=== PATIENT | male | born 1970 | race Two or more races ===

== ENCOUNTER 2017-10-01 08:31 | Emergency (ER) | payer OTHER ==
[~2017-10-01] VITALS: Ht 165.1 cm; Wt 97.7 kg
[~2017-10-01 08:31] MED LIST: METF10002 PO
[2017-10-01 09:04] LABS: MICROSCOPIC NOT IND
[2017-10-01 09:20] LABS: BASOPHILS # (AUTO) 0.04 x10^3/uL (0-0.1); BASOPHILS % (AUTO) 1 % (0-1); EOSINOPHILS # (AUTO) 0.15 x10^3/uL (0-0.4); EOSINOPHILS % (AUTO) 3 % (1-7); LYMPHOCYTES # (AUTO) 1.71 x10^3/uL (1-3.4); LYMPHOCYTES % (AUTO) 33 % (22-44); MD NO; MEAN CORPUSCULAR HGB CONC 34.4 g/dL (33.2-36.2); MEAN CORPUSCULAR VOLUME 90.1 fL (81-97); MEAN PLATELET VOLUME 7.7 fL (7.4-10.4); MONOCYTES # (AUTO) 0.52 x10^3/uL (0.2-0.8); MONOCYTES % (AUTO) 10 % (2-9); NEUTROPHILS % (AUTO) 54 % (42-75); PLATELET COUNT 305 x10^3/uL (130-400); RED BLOOD COUNT 5.55 x10^6/uL (4.38-5.82); RED CELL DISTRIBUTION WIDTH 12.4 % (9.4-14.8)
[2017-10-01 09:31] LABS: ALANINE AMINOTRANSFERASE 80 U/L (12-78); ALBUMIN 3.1 g/dL (3.4-5.0); ANION GAP 10 mmol/L (5-15); CALCIUM 8.9 mg/dL (8.5-10.1); CHLORIDE 99 mmol/L (98-107); CREATININE 1.17 mg/dL (0.7-1.3)
[2017-10-01 09:33] LABS: ALKALINE PHOSPHATASE 157 U/L (45-117); BILIRUBIN,TOTAL 0.4 mg/dL (0.2-1.0); TOTAL PROTEIN 7.3 g/dL (6.4-8.2)
[2017-10-01] MEDS ORDERED: SODIUM CHLORIDE FLUSH 10ML SYR IVF ONE (10:00)
[2017-10-01] MEDS ORDERED: SODIUM CHLORIDE 0.9% 1,000ML IVBOLUS ONE (10:00)
[2017-10-01] MEDS ORDERED: OMNIPAQUE 350 MG/ML, 100ML BOTTLE ONE (10:13)
[2017-10-01] MEDS ORDERED: INSULIN REGULAR 100 UNITS/ML, 3ML VIAL ONE (11:30)
[2017-10-01] MEDS ORDERED: INSULIN REGULAR 100 UNITS/ML, 3ML VIAL SQ-INSULIN ONE (11:30)
[2017-10-01 12:09] VITALS: BP 126/78
== END 2017-10-01 12:23 | disposition home or self-care (01) ==
LOC: ED 10:59
DX: K59.00 Constipation, unspecified (principal); E11.65 Type 2 diabetes mellitus with hyperglycemia
CPT/HCPCS: 36415; 74177; 80053; 81003; 83690; 85025; 96360; 96361; 96372; 99285; J7030; Q9967

== ENCOUNTER 2017-10-02 16:24 | Emergency (ER) | payer OTHER ==
[~2017-10-02] VITALS: Ht 165.1 cm; Wt 86.8 kg
[2017-10-02 17:41] LABS: BASOPHILS # (AUTO) 0.03 x10^3/uL (0-0.1); BASOPHILS % (AUTO) 1 % (0-1); EOSINOPHILS # (AUTO) 0.12 x10^3/uL (0-0.4); EOSINOPHILS % (AUTO) 2 % (1-7); LYMPHOCYTES # (AUTO) 2.06 x10^3/uL (1-3.4); LYMPHOCYTES % (AUTO) 35 % (22-44); MD NO; MEAN CORPUSCULAR HEMOGLOBIN 31.8 pg (27.5-34.5); MEAN CORPUSCULAR HGB CONC 34.9 g/dL (33.2-36.2); MEAN CORPUSCULAR VOLUME 91.1 fL (81-97); MEAN PLATELET VOLUME 7.8 fL (7.4-10.4); MONOCYTES # (AUTO) 0.55 x10^3/uL (0.2-0.8); MONOCYTES % (AUTO) 10 % (2-9); NEUTROPHILS # (AUTO) 3.05 x10^3/uL (1.8-6.8); NEUTROPHILS % (AUTO) 53 % (42-75); PLATELET COUNT 325 x10^3/uL (130-400); RED BLOOD COUNT 5.69 x10^6/uL (4.38-5.82); RED CELL DISTRIBUTION WIDTH 12.8 % (9.4-14.8)
[2017-10-02 17:51] LABS: ALBUMIN 3.3 g/dL (3.4-5.0); ANION GAP 7 mmol/L (5-15); CALCIUM 8.6 mg/dL (8.5-10.1); CHLORIDE 103 mmol/L (98-107)
[2017-10-02 17:55] LABS: ALANINE AMINOTRANSFERASE 86 U/L (12-78); ALKALINE PHOSPHATASE 115 U/L (45-117); BILIRUBIN,TOTAL 0.7 mg/dL (0.2-1.0); CREATININE 0.94 mg/dL (0.7-1.3); TOTAL PROTEIN 7.6 g/dL (6.4-8.2)
[2017-10-02] MEDS ORDERED: ONDANSETRON ODT 4 MG PO ONE (18:30)
[2017-10-02] MEDS ORDERED: ONDANSETRON ODT 4 MG ONE (18:38)
[2017-10-02 18:56] LABS: TROPONIN I < 0.015 ng/mL (0.000-0.045)
[2017-10-02] MEDS ORDERED: PROMETHAZINE 25 MG/ML, 1ML ONE (18:57)
[2017-10-02] MEDS ORDERED: PROMETHAZINE 25 MG/ML, 1ML IM ONE (19:00)
[2017-10-02 20:33] VITALS: BP 125/87
== END 2017-10-02 20:43 | disposition home or self-care (01) ==
LOC: ED 19:09
DX: K29.00 Acute gastritis without bleeding (principal); R11.2 Nausea with vomiting, unspecified; E11.9 Type 2 diabetes mellitus without complications; K21.9 Gastro-esophageal reflux disease without esophagitis
CPT/HCPCS: 36415; 71045; 80053; 83690; 84484; 85025; 86677; 93005; 96372; 99285; J2550; Q0162

== ENCOUNTER → 2017-11-21 | Outpatient (CLI) | payer OTHER ==
[~2017-11-21] MED LIST changes: +SINCALIDE (KINEVAC) 5 MCG ONE
== END | disposition home or self-care (01) ==
LOC: RAD 10:22
PROVIDERS: ATTEND Family Medicine
DX: R10.9 Unspecified abdominal pain (principal)
CPT/HCPCS: 78226; A9537; J2805

== ENCOUNTER → 2017-12-24 | Outpatient (CLI) | payer OTHER ==
[~2017-12-24] MED LIST changes: +ATOR10TA9 PO; +HYDR-3240 PO; +ONDA4TAB10 PO; -SINCALIDE (KINEVAC) 5 MCG ONE; +SITA100T PO
[2017-12-24 10:01] LABS: ALBUMIN 3.7 g/dL (3.4-5.0); ANION GAP 7 mmol/L (5-15); CALCIUM 8.6 mg/dL (8.5-10.1); CHLORIDE 109 mmol/L (98-107)
[2017-12-24 10:06] LABS: ALANINE AMINOTRANSFERASE 57 U/L (12-78); ALKALINE PHOSPHATASE 90 U/L (45-117); BILIRUBIN,TOTAL 0.8 mg/dL (0.2-1.0); CREATININE 0.97 mg/dL (0.7-1.3); TOTAL PROTEIN 7.8 g/dL (6.4-8.2)
== END | disposition home or self-care (01) ==
LOC: STAR 08:59
PROVIDERS: ATTEND Surgery
DX: Z01.818 Encounter for other preprocedural examination (principal)
CPT/HCPCS: 36415; 80053

== ENCOUNTER 2017-12-30 08:38 | Day surgery (SDC) | payer OTHER ==
[~2017-12-30] VITALS: Ht 165.1 cm; Wt 87.4 kg
[~2017-12-30 08:38] MED LIST changes: +BUPIVACAINE/PF-EPI 0.5% 1:200K ONE; -HYDR-3240 PO; -ONDA4TAB10 PO
[2017-12-30 09:01] VITALS: BP 135/92
[2017-12-30] MEDS ORDERED: LACTATED RINGERS 1,000 ML IV SCH (09:03)
[2017-12-30] MEDS ORDERED: ACETAMINOPHEN 500 MG TABLET PO ONE (09:30)
[2017-12-30] MEDS ORDERED: ONDANSETRON ODT 8 MG PO ONE (09:30)
[2017-12-30] MEDS ORDERED: GABAPENTIN 300 MG CAPSULE PO ONE (09:30)
[2017-12-30] MEDS: OXYcodone IR 5MG TABLET PO ONE ×2 (09:39→09:44)
[2017-12-30] MEDS ORDERED: MIDAZOLAM 1 MG/ML, 2ML ONE ×2 (09:41→11:39)
[2017-12-30] MEDS ORDERED: FENTANYL PF 250 MCG/5ML ONE (09:41)
[2017-12-30] MEDS ORDERED: SUCCINYLCHOLINE 20 MG/ML, 10ML ONE (10:01)
[2017-12-30] MEDS ORDERED: PROPOFOL 10 MG/ML, 20ML ONE (10:01)
[2017-12-30] MEDS ORDERED: ROCURONIUM 10MG/ML,5ML ONE (10:01)
[2017-12-30] MEDS ORDERED: CEFAZOLIN 1,000 MG ONE (10:14)
[2017-12-30] MEDS ORDERED: ONDANSETRON 2MG/ML, 2ML ONE (10:14)
[2017-12-30] MEDS ORDERED: KETOROLAC 30 MG/1 ML ONE (10:14)
[2017-12-30] MEDS ORDERED: PROMETHAZINE 25 MG/ML, 1ML IV PRN (10:30)
[2017-12-30] MEDS ORDERED: PROMETHAZINE 12.5 MG SUPP PR PRN (10:30)
[2017-12-30] MEDS ORDERED: MIDAZOLAM 1 MG/ML, 2ML IV PRN (10:30)
[2017-12-30] MEDS ORDERED: MEPERIDINE/PF 25MG/0.5ML IVPush PRN (10:30)
[2017-12-30] MEDS ORDERED: OXYcodone 5 MG/5 ML ORAL.SOL UDC PO PRN (10:30)
[2017-12-30] MEDS ORDERED: PROMETHAZINE 25 MG SUPP PR PRN (10:30)
[2017-12-30] MEDS ORDERED: EPHEDRINE 50 MG/ML, 1ML IM PRN (10:30)
[2017-12-30] MEDS ORDERED: MORPHINE SULFATE 4 MG/ML, 1ML IVPush PRN (10:30)
[2017-12-30] MEDS ORDERED: DIPHENHYDRAMINE 50 MG/ML, 1ML IVPush PRN (10:30)
[2017-12-30] MEDS ORDERED: ONDANSETRON ODT 8 MG PO PRN (10:30)
[2017-12-30] MEDS ORDERED: LABETALOL 5MG/ML, 20ML IV PRN (10:30)
[2017-12-30] MEDS ORDERED: ONDANSETRON 2MG/ML, 2ML IV PRN (10:30)
[2017-12-30] MEDS ORDERED: EPHEDRINE 50 MG/ML, 1ML IVPush PRN (10:30)
[2017-12-30] MEDS ORDERED: hydrALAzine 20 MG/ML, 1ML ONE (11:19)
[2017-12-30] MEDS ORDERED: FENTANYL PF 100 MCG/2ML ONE (11:27)
[2017-12-30] MEDS: FENTANYL PF 100 MCG/2ML IV PRN ×3 (11:27→11:48)
[2017-12-30] MEDS ORDERED: hydrALAzine 20 MG/ML, 1ML IV PRN (11:30)
[2017-12-30] MEDS ORDERED: OXYcodone 5 MG/5 ML ORAL.SOL UDC ONE (11:50)
[2017-12-31] MEDS ORDERED: ONDA4TAB10 PO (19:22)
[2017-12-31] MEDS ORDERED: HYDR-3240 PO (19:22)
== END 2017-12-30 13:55 | disposition home or self-care (01) ==
LOC: OUT 08:38
PROVIDERS: ATTEND Surgery
DX: K80.10 Calculus of gallbladder with chronic cholecystitis without obstruction (principal); E11.9 Type 2 diabetes mellitus without complications; E78.00 Pure hypercholesterolemia, unspecified; Z72.89 Other problems related to lifestyle
CPT/HCPCS: 47562; 82962; 88304; C1729; J0330; J0360; J0690; J1885; J2250; J2405; J2704; J3010; J7120; Q0162

== ENCOUNTER 2017-12-31 18:52 | Inpatient (IN) | payer OTHER ==
[~2017-12-31] VITALS: Ht 165.1 cm; Wt 90.0 kg
[~2017-12-31 18:52] MED LIST changes: -BUPIVACAINE/PF-EPI 0.5% 1:200K ONE
[2017-12-31] MEDS ORDERED: MORPHINE SULFATE 4 MG/ML, 1ML IVPush PRN (19:00)
[2017-12-31] MEDS ORDERED: ONDANSETRON ODT 4 MG PO ONE (19:00)
[2017-12-31] MEDS ORDERED: ONDANSETRON ODT 4 MG ONE (19:04)
[2017-12-31] MEDS ORDERED: MORPHINE SULFATE 4 MG/ML, 1ML ONE (19:05)
[2017-12-31] MEDS ORDERED: ONDA4TAB10 PO (19:22)
[2017-12-31] MEDS ORDERED: HYDR-3240 PO (19:22)
[2017-12-31 19:27] LABS: BASOPHILS # (AUTO) 0.02 x10^3/uL (0-0.1); BASOPHILS % (AUTO) 0 % (0-1); EOSINOPHILS # (AUTO) 0.12 x10^3/uL (0-0.4); EOSINOPHILS % (AUTO) 1 % (1-7); LYMPHOCYTES # (AUTO) 0.62 x10^3/uL (1-3.4); LYMPHOCYTES % (AUTO) 5 % (22-44); MD NO; MEAN CORPUSCULAR HEMOGLOBIN 31.9 pg (27.5-34.5); MEAN CORPUSCULAR HGB CONC 34.4 g/dL (33.2-36.2); MEAN CORPUSCULAR VOLUME 92.8 fL (81-97); MEAN PLATELET VOLUME 7.4 fL (7.4-10.4); MONOCYTES # (AUTO) 0.53 x10^3/uL (0.2-0.8); MONOCYTES % (AUTO) 4 % (2-9); NEUTROPHILS # (AUTO) 10.81 x10^3/uL (1.8-6.8); NEUTROPHILS % (AUTO) 89 % (42-75); PLATELET COUNT 257 x10^3/uL (130-400); RED BLOOD COUNT 4.93 x10^6/uL (4.38-5.82)
[2017-12-31 19:41] LABS: ALANINE AMINOTRANSFERASE 77 U/L (12-78); ALBUMIN 2.8 g/dL (3.4-5.0); ANION GAP 9 mmol/L (5-15); CALCIUM 8.9 mg/dL (8.5-10.1); CHLORIDE 100 mmol/L (98-107)
[2017-12-31 19:46] LABS: ALKALINE PHOSPHATASE 73 U/L (45-117); CREATININE 1.14 mg/dL (0.7-1.3); TOTAL PROTEIN 7.2 g/dL (6.4-8.2); TROPONIN I 0.077 ng/mL (0.000-0.045)
[2017-12-31] MEDS ORDERED: OMNIPAQUE 350 MG/ML, 100ML BOTTLE ONE (20:17)
[2017-12-31] MEDS ORDERED: ZOLPIDEM 5MG TABLET PO PRN (22:00)
[2017-12-31] MEDS ORDERED: IBUPROFEN 600 MG TABLET PO PRN (22:00)
[2017-12-31] MEDS ORDERED: ONDANSETRON 2MG/ML, 2ML IVPush PRN (22:00)
[2017-12-31] MEDS ORDERED: ONDANSETRON ODT 4 MG PO PRN (22:00)
[2017-12-31] MEDS ORDERED: ACETAMINOPHEN 325 MG TABLET PO PRN (22:00)
[2017-12-31] MEDS ORDERED: POLYETHYLENE GLYCOL 17 GM PACKET PO PRN (22:00)
[2017-12-31] MEDS: ENOXAPARIN 40 MG/0.4 ML SQ SCH (22:34)
[2017-12-31] MEDS: morphine SULFATE 10 MG/ML, 1ML IVPush PRN (22:34)
[2017-12-31] MEDS: SODIUM CHLORIDE 0.9% 1,000 ML IV SCH (22:35)
[2017-12-31 22:42] VITALS: BP 110/88
[2018-01-01 00:03] VITALS: BP 108/70
[2018-01-01 01:06] LABS: BASOPHILS # (AUTO) 0.01 x10^3/uL (0-0.1); BASOPHILS % (AUTO) 0 % (0-1); EOSINOPHILS % (AUTO) 2 % (1-7); LYMPHOCYTES # (AUTO) 0.79 x10^3/uL (1-3.4); LYMPHOCYTES % (AUTO) 8 % (22-44); MD NO; MEAN CORPUSCULAR HEMOGLOBIN 31.7 pg (27.5-34.5); MEAN CORPUSCULAR HGB CONC 34.3 g/dL (33.2-36.2); MEAN CORPUSCULAR VOLUME 92.4 fL (81-97); MEAN PLATELET VOLUME 7.4 fL (7.4-10.4); MONOCYTES # (AUTO) 0.56 x10^3/uL (0.2-0.8); MONOCYTES % (AUTO) 5 % (2-9); NEUTROPHILS # (AUTO) 8.74 x10^3/uL (1.8-6.8); NEUTROPHILS % (AUTO) 85 % (42-75); PLATELET COUNT 242 x10^3/uL (130-400); RED BLOOD COUNT 4.46 x10^6/uL (4.38-5.82); RED CELL DISTRIBUTION WIDTH 12.7 % (9.4-14.8)
[2018-01-01 01:19] LABS: ANION GAP 9 mmol/L (5-15); CALCIUM 8.6 mg/dL (8.5-10.1); CHLORIDE 100 mmol/L (98-107); CHOLESTEROL, TOTAL 98 mg/dL (140-239); CREATININE 0.98 mg/dL (0.7-1.3)
[2018-01-01 01:24] LABS: CHOL/HDL RATIO 3.1; HDL CHOL % 33 % (26-37); HDL CHOLESTEROL (DIRECT) 32 mg/dL (40-60); LDL CHOLESTEROL,CALCULATED 36 mg/dL (54-169); LDL/HDL RATIO 1.1 (0.5-3.0); TRIGLYCERIDES 152 mg/dL (50-200); VLDL CHOLESTEROL 30 mg/dL (0-25)
[2018-01-01 01:26] LABS: TROPONIN I 0.093 ng/mL (0.000-0.045)
[2018-01-01] MEDS: morphine SULFATE 10 MG/ML, 1ML IVPush PRN ×2 (06:18→14:59)
[2018-01-01 07:05] LABS: TROPONIN I 0.093 ng/mL (0.000-0.045)
[2018-01-01 07:37] VITALS: BP 143/79
[2018-01-01] MEDS ORDERED: REGADENOSON 0.4 MG/5 ML SYRINGE ONE (07:47)
[2018-01-01] MEDS: SODIUM CHLORIDE 0.9% 1,000 ML IV SCH (08:24)
[2018-01-01] MEDS ORDERED: LINAGLIPTIN 5 MG TAB PO SCH (09:00)
[2018-01-01 10:32] LABS: HEMOGLOBIN A1C 8.8 % (4.2-6.3)
[2018-01-01] MEDS: LINAGLIPTIN 5 MG TAB PO SCH ×2 (11:41→11:54)
[2018-01-01] MEDS: INSULIN LISPRO 100 UNITS/ML, PEN SQ-INSULIN SCH ×3 (13:08→20:43)
[2018-01-01 13:12] VITALS: BP 115/78
[2018-01-01] MEDS ORDERED: MAGNESIUM SULFATE PMX 2GM/50ML 50 ML IV ONE (14:30)
[2018-01-01] MEDS ORDERED: LORazepam 2 MG/ML, 1ML IVPush PRN (16:00)
[2018-01-01] MEDS ORDERED: ALUMINUM/MAG/SIMETHICONE 30 ML UDC PO PRN (16:00)
[2018-01-01] MEDS: PANTOPRAZOLE 40 MG IV IVPush SCH (16:52)
[2018-01-01 17:11] LABS: AMPHETAMINE SCREEN, URINE Negative (Negative); BARBITURATE SCREEN, URINE Negative (Negative); BENZODIAZEPINE SCREEN, URINE Negative (Negative); CANNABINOID SCREEN, URINE Negative (Negative); COCAINE SCREEN, URINE Negative (Negative); METHADONE SCREEN, URINE Negative (Negative); OPIATE SCREEN, URINE Positive (Negative)
[2018-01-01 17:13] LABS: TROPONIN I 0.065 ng/mL (0.000-0.045)
[2018-01-01 19:15] VITALS: BP 122/82
[2018-01-01] MEDS ORDERED: IBUPROFEN 200 MG TABLET ONE (20:13)
[2018-01-01] MEDS ORDERED: ATORVASTATIN 10 MG TABLET PO SCH (21:00)
[2018-01-01] MEDS: ENOXAPARIN 40 MG/0.4 ML SQ SCH (22:23)
[2018-01-02 01:47] VITALS: BP 128/86
[2018-01-02] MEDS: PANTOPRAZOLE 40 MG IV IVPush SCH (04:45)
[2018-01-02 05:31] LABS: BASOPHILS # (AUTO) 0.01 x10^3/uL (0-0.1); BASOPHILS % (AUTO) 0 % (0-1); EOSINOPHILS # (AUTO) 0.28 x10^3/uL (0-0.4); EOSINOPHILS % (AUTO) 3 % (1-7); LYMPHOCYTES # (AUTO) 0.98 x10^3/uL (1-3.4); LYMPHOCYTES % (AUTO) 10 % (22-44); MD NO; MEAN CORPUSCULAR HEMOGLOBIN 31.8 pg (27.5-34.5); MEAN CORPUSCULAR HGB CONC 34.5 g/dL (33.2-36.2); MEAN CORPUSCULAR VOLUME 92.4 fL (81-97); MEAN PLATELET VOLUME 7.5 fL (7.4-10.4); MONOCYTES % (AUTO) 10 % (2-9); NEUTROPHILS # (AUTO) 7.29 x10^3/uL (1.8-6.8); NEUTROPHILS % (AUTO) 77 % (42-75); PLATELET COUNT 245 x10^3/uL (130-400); RED BLOOD COUNT 4.42 x10^6/uL (4.38-5.82); RED CELL DISTRIBUTION WIDTH 13.1 % (9.4-14.8)
[2018-01-02 05:39] LABS: ANION GAP 8 mmol/L (5-15); CALCIUM 8.8 mg/dL (8.5-10.1); CHLORIDE 106 mmol/L (98-107); CREATININE 0.77 mg/dL (0.7-1.3)
[2018-01-02] MEDS: INSULIN LISPRO 100 UNITS/ML, PEN SQ-INSULIN SCH ×2 (07:00→11:57)
[2018-01-02 09:25] VITALS: BP 113/74
[2018-01-02] MEDS ORDERED: PANTOPRAZOLE 20MG TABLET PO SCH (09:30)
[2018-01-02] MEDS ORDERED: METOPROLOL SUCCINATE 25 MG TAB.ER.24H PO SCH (12:00)
[2018-01-02] MEDS ORDERED: PANT20TA3 PO (13:45)
[2018-01-02] MEDS ORDERED: LOSA25TA2 PO (13:45)
[2018-01-02] MEDS ORDERED: ASPI-621 PO (13:45)
[2018-01-02] MEDS ORDERED: METO25TA91 PO (13:45)
[2018-01-02] MEDS ORDERED: MAG30ORA PO (13:45)
[2018-01-03] MEDS ORDERED: ASPIRIN 81 MG TABLET EC PO SCH (06:00)
[2018-01-03] MEDS ORDERED: LOSARTAN 25MG TABLET PO SCH (09:00)
== END 2018-01-02 15:30 | disposition home or self-care (01) | DRG 189 ==
LOC: ED 19:59 → EDIP 21:29 → 5SO 22:13 → DCLOUNGE 01-02 15:13
PROVIDERS: ADMIT Hospitalist; ATTEND Hospitalist
DX: J96.00 Acute respiratory failure, unspecified whether with hypoxia or hypercapnia (principal); J98.11 Atelectasis; E11.9 Type 2 diabetes mellitus without complications; E66.9 Obesity, unspecified; E78.5 Hyperlipidemia, unspecified; I25.10 Atherosclerotic heart disease of native coronary artery without angina pectoris; I25.5 Ischemic cardiomyopathy; K21.9 Gastro-esophageal reflux disease without esophagitis; K76.0 Fatty (change of) liver, not elsewhere classified; Z87.11 Personal history of peptic ulcer disease; I25.2 Old myocardial infarction; Z90.49 Acquired absence of other specified parts of digestive tract; Z68.33 Body mass index [BMI] 33.0-33.9, adult
CPT/HCPCS: 36415; 71275; 76700; 78452; 80048; 80053; 80061; 80307; 82962; 83036; 83605; 83690; 83735; 83880; 84100; 84484; 85025; 93005; 93017; 93306; 96374; 99285; G0378; J1650; J2785; Q0162; Q9967; A9502; C9113; C9898; J1815; J2060; J2270; J3475; J7030

== ENCOUNTER 2018-04-21 06:02 | Observation (INO) | payer OTHER ==
[~2018-04-21] VITALS: Ht 165.1 cm; Wt 93.4 kg
[2018-04-21] VITALS (7 sets, daily range): BP systolic 99–121; BP diastolic 59–81
[~2018-04-21 06:02] MED LIST changes: +ASPI81TA45 PO; +HYDR-3240 PO; +LOSA25TA2 PO; +MAG30ORA PO; +METO25TA91 PO; +ONDA4TAB10 PO; +PANT20TA3 PO
[2018-04-21] MEDS ORDERED: ASPIRIN 81 MG TABLET CHEW PO ONE (06:30)
[2018-04-21] MEDS ORDERED: LORazepam 2 MG/ML, 1ML IVPush ONE (06:30)
[2018-04-21] MEDS ORDERED: SODIUM CHLORIDE FLUSH 10ML SYR IVF ONE (06:30)
[2018-04-21] MEDS ORDERED: NITROGLYCERIN SINGLE TAB 0.4 MG SL PRN (06:30)
[2018-04-21] MEDS ORDERED: ASPIRIN 81 MG TABLET CHEW ONE (06:31)
[2018-04-21] MEDS ORDERED: LORazepam 2 MG/ML, 1ML ONE (06:31)
[2018-04-21] MEDS ORDERED: NITROGLYCERIN SINGLE TAB 0.4 MG SL ONE (06:31)
[2018-04-21 06:44] LABS: BASOPHILS # (AUTO) 0.06 x10^3/uL (0-0.1); BASOPHILS % (AUTO) 1 % (0-1); EOSINOPHILS % (AUTO) 3 % (1-7); LYMPHOCYTES # (AUTO) 2.24 x10^3/uL (1-3.4); LYMPHOCYTES % (AUTO) 32 % (22-44); MD NO; MEAN CORPUSCULAR HEMOGLOBIN 31.6 pg (27.5-34.5); MEAN CORPUSCULAR HGB CONC 34.2 g/dL (33.2-36.2); MEAN CORPUSCULAR VOLUME 92.5 fL (81-97); MEAN PLATELET VOLUME 7.3 fL (7.4-10.4); MONOCYTES # (AUTO) 0.72 x10^3/uL (0.2-0.8); MONOCYTES % (AUTO) 10 % (2-9); NEUTROPHILS # (AUTO) 3.75 x10^3/uL (1.8-6.8); NEUTROPHILS % (AUTO) 54 % (42-75); PLATELET COUNT 336 x10^3/uL (130-400); RED BLOOD COUNT 5.33 x10^6/uL (4.38-5.82); RED CELL DISTRIBUTION WIDTH 13.1 % (9.4-14.8)
--- NOTE | 2018-04-21 06:45 | NUR ---
FIRST CONTACT WITH PT. PT C/O LEFT SIDED CP RADIATING TO LEFT ARM WITH NAUSEA SINCE 5AM TODAY. PT HAS HX OF [place]. PT'S AOX4. RESPS EVEN AND UNLABORED. 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 ALL MONITORS IN PLACE. CALL LIGHT WITHIN REACH. EDMD AT BEDSIDE AND EXPLAIN POC AT THIS TIME.
--- NOTE | 2018-04-21 06:50 | NUR ---
PT MEDICATED PER EMAR. PT TOLERATED WELL. PT'S AOX4. RESPS EVEN AND UNLABORED.
[2018-04-21 06:57] LABS: ALBUMIN 3.3 g/dL (3.4-5.0); ANION GAP 6 mmol/L (5-15); CALCIUM 8.6 mg/dL (8.5-10.1); CHLORIDE 106 mmol/L (98-107); CREATININE 0.94 mg/dL (0.7-1.3)
--- NOTE | 2018-04-21 06:58 | NUR ---
REPORT GIVEN TO FERNIE MARTINES.
[2018-04-21 07:00] LABS: TROPONIN I < 0.015 ng/mL (0.000-0.045)
--- NOTE | 2018-04-21 08:33 | NUR ---
SBAR TO NICOLAS MARTINES VIA TELEPHONE
--- NOTE | 2018-04-21 08:33 | NUR ---
LAST EAT OR DRINK 04/20/18 AT 1900
[2018-04-21] MEDS ORDERED: ONDANSETRON ODT 4 MG PO PRN (11:00)
[2018-04-21] MEDS: metFORMIN 500 MG TABLET PO SCH ×2 (11:01→15:52)
[2018-04-21] MEDS ORDERED: PANTOPRAZOLE 20MG TABLET PO SCH (11:02)
[2018-04-21] MEDS ORDERED: LINAGLIPTIN 5 MG TAB PO SCH (11:06)
[2018-04-21] MEDS ORDERED: ACETAMINOPHEN 325 MG TABLET PO PRN (11:30)
[2018-04-21] MEDS ORDERED: morphine SULFATE 10 MG/ML, 1ML IVPush PRN (11:30)
[2018-04-21] MEDS ORDERED: ONDANSETRON 2MG/ML, 2ML IVPush PRN (11:30)
[2018-04-21] MEDS ORDERED: LOSARTAN 25MG TABLET PO SCH (11:30)
[2018-04-21] MEDS ORDERED: ENOXAPARIN 40 MG/0.4 ML SQ SCH (11:30)
[2018-04-21 12:06] LABS: TROPONIN I < 0.015 ng/mL (0.000-0.045)
[2018-04-21 12:21] LABS: AMPHETAMINE SCREEN, URINE Positive (Negative); BARBITURATE SCREEN, URINE Negative (Negative); BENZODIAZEPINE SCREEN, URINE Negative (Negative); CANNABINOID SCREEN, URINE Positive (Negative); COCAINE SCREEN, URINE Negative (Negative); METHADONE SCREEN, URINE Negative (Negative); OPIATE SCREEN, URINE Negative (Negative)
[2018-04-21] MEDS ORDERED: SODIUM CHLORIDE 0.9% 500 ML IV SCH (16:00)
[2018-04-21] MEDS ORDERED: NITROGLYCERIN 0.4 MG BOTTLE (25 TABS) SL PRN (16:30)
[2018-04-21] MEDS ORDERED: NITROGLYCERIN 0.4 MG/SPRAY SL PRN (16:30)
[2018-04-21] MEDS: NITROGLYCERIN 0.4 MG BOTTLE (25 TABS) SL PRN ×2 (16:41→16:51)
[2018-04-21 17:33] LABS: TROPONIN I < 0.015 ng/mL (0.000-0.045)
[2018-04-21] MEDS ORDERED: ATORVASTATIN 10 MG TABLET PO SCH (21:00)
[2018-04-22] MEDS ORDERED: ASPIRIN 81 MG TABLET EC PO SCH (06:00)
[2018-04-22] MEDS ORDERED: METOPROLOL SUCCINATE 25 MG TAB.ER.24H PO SCH (06:00)
== END 2018-04-21 18:39 | disposition home or self-care (01) ==
LOC: ED 06:26 → INTOOBSV 07:39 → EDIP 07:39 → 5SO 08:48
PROVIDERS: ADMIT Internal Medicine; ATTEND Internal Medicine
DX: R07.89 Other chest pain (principal); E11.65 Type 2 diabetes mellitus with hyperglycemia; I25.10 Atherosclerotic heart disease of native coronary artery without angina pectoris; E66.9 Obesity, unspecified; E78.5 Hyperlipidemia, unspecified; F41.1 Generalized anxiety disorder; I11.0 Hypertensive heart disease with heart failure; I50.32 Chronic diastolic (congestive) heart failure; K21.9 Gastro-esophageal reflux disease without esophagitis; Z79.82 Long term (current) use of aspirin; Z87.11 Personal history of peptic ulcer disease; I25.2 Old myocardial infarction; Z90.49 Acquired absence of other specified parts of digestive tract
CPT/HCPCS: 36415; 71045; 80048; 80307; 82040; 84484; 85025; 93005; 96374; 99284; G0378; J2060

== ENCOUNTER 2018-05-08 10:39 | Day surgery (SDC) | payer OTHER ==
[~2018-05-08] VITALS: Ht 165.1 cm; Wt 83.6 kg
[2018-05-08] MEDS ORDERED: SODIUM CHLORIDE 0.9% 1,000 ML IV SCH ×2 (12:07→13:31)
[2018-05-08 12:09] VITALS: BP 137/100
[2018-05-08] MEDS ORDERED: ACET-76 PO (12:21)
[2018-05-08] MEDS ORDERED: FENTANYL PF 100 MCG/2ML ONE (12:45)
[2018-05-08] MEDS ORDERED: TICAGRELOR 90 MG TABLET ONE (12:46)
[2018-05-08] MEDS ORDERED: LIDOCAINE 2%, 20ML ONE (12:46)
[2018-05-08] MEDS ORDERED: MIDAZOLAM 1 MG/ML, 5ML ONE (12:46)
[2018-05-08] MEDS ORDERED: VERAPAMIL 2.5 MG/ML, 2ML ONE (12:46)
[2018-05-08] MEDS ORDERED: HEPARIN 1,000 UNITS/ML, 10ML ONE (12:46)
[2018-05-08] MEDS ORDERED: BIVALIRUDIN 250 MG ONE (12:46)
[2018-05-08] MEDS ORDERED: NITROGLYCERIN 5 MG/ML, 10ML ONE (12:46)
[2018-05-08] MEDS ORDERED: ACETAMINOPHEN 500 MG TABLET PO PRN (14:00)
[2018-05-08] MEDS ORDERED: HYDROcodone/APAP 5/325 TABLET PO PRN (14:00)
[2018-05-08] MEDS ORDERED: metFORMIN 500 MG TABLET PO SCH (21:00)
[2018-05-08] MEDS ORDERED: ATORVASTATIN 10 MG TABLET PO SCH (21:00)
[2018-05-09] MEDS ORDERED: METOPROLOL SUCCINATE 25 MG TAB.ER.24H PO SCH (06:00)
[2018-05-09] MEDS ORDERED: ASPIRIN 81 MG TABLET EC PO SCH (06:00)
[2018-05-09] MEDS ORDERED: LINAGLIPTIN 5 MG TAB PO SCH (09:00)
[2018-05-09] MEDS ORDERED: LOSARTAN 25MG TABLET PO SCH (09:00)
== END 2018-05-08 16:07 | disposition home or self-care (01) ==
LOC: CACL 10:39
PROVIDERS: ATTEND Internal Medicine Cardiovascular Disease
DX: I25.110 Atherosclerotic heart disease of native coronary artery with unstable angina pectoris (principal); E11.9 Type 2 diabetes mellitus without complications; F19.90 Other psychoactive substance use, unspecified, uncomplicated; Z79.82 Long term (current) use of aspirin; Z90.49 Acquired absence of other specified parts of digestive tract; Z79.84 Long term (current) use of oral hypoglycemic drugs
CPT/HCPCS: 93458; 99156; C1769; C1894; J1644; J2250; J3010; J3490; Q9967; J0583

== ENCOUNTER 2019-07-22 10:01 | Emergency (ER) | payer OTHER ==
[~2019-07-22] VITALS: Ht 165.1 cm; Wt 90.5 kg
[~2019-07-22 10:01] MED LIST changes: +ACET-76 PO
[2019-07-22] MEDS ORDERED: KETOROLAC 30 MG/1 ML IM ONE (10:30)
[2019-07-22] MEDS ORDERED: DIAZEPAM 5 MG TABLET PO ONE (10:30)
[2019-07-22 10:49] LABS: BASOPHILS # (AUTO) 0.03 x10^3/uL (0-0.1); BASOPHILS % (AUTO) 0 % (0-1); EOSINOPHILS # (AUTO) 0.12 x10^3/uL (0-0.4); EOSINOPHILS % (AUTO) 1 % (1-7); LYMPHOCYTES # (AUTO) 1.52 x10^3/uL (1-3.4); LYMPHOCYTES % (AUTO) 16 % (22-44); MD NO; MEAN CORPUSCULAR HGB CONC 33.8 g/dL (33.2-36.2); MEAN CORPUSCULAR VOLUME 91.6 fL (81-97); MEAN PLATELET VOLUME 7.8 fL (7.4-10.4); MONOCYTES % (AUTO) 7 % (2-9); NEUTROPHILS # (AUTO) 7.27 x10^3/uL (1.8-6.8); NEUTROPHILS % (AUTO) 75 % (42-75); PLATELET COUNT 308 x10^3/uL (130-400); RED CELL DISTRIBUTION WIDTH 12.6 % (9.4-14.8)
[2019-07-22] MEDS ORDERED: DIAZEPAM 5 MG TABLET ONE ×2 (10:51→10:52)
[2019-07-22] MEDS ORDERED: KETOROLAC 30 MG/1 ML ONE (10:52)
[2019-07-22 10:57] LABS: CALCIUM 8.7 mg/dL (8.5-10.1)
[2019-07-22 11:18] LABS: ALBUMIN 3.2 g/dL (3.4-5.0); ANION GAP 6 mmol/L (5-15); CHLORIDE 105 mmol/L (98-107); CREATININE 0.95 mg/dL (0.7-1.3)
--- NOTE | 2019-07-22 11:49 | NUR ---
PT STATES SOME IMPROVEMENT IN BACK PAIN AFTER MEDICATED. PT GOING FROM SITTING AT EDGE OF BED TO STANDING. DENIES ANY CP SINCE ARRIVAL. TACHIPNIC INITIALLY BUT NOT AT THIS TIME.
[2019-07-22 12:05] LABS: MICROSCOPIC NOT IND
[2019-07-22 12:18] LABS: CULTURE INDICATED? NO
[2019-07-22 13:00] LABS: TROPONIN I < 0.015 ng/mL (0.000-0.045)
[2019-07-22 13:35] VITALS: BP 145/98
--- NOTE | 2019-07-22 13:35 | NUR ---
RE-EVAL AND THEN AMBULATED TO DISCHARGE WINDOW STEADY GAIT
== END 2019-07-22 13:37 | disposition home or self-care (01) ==
LOC: ED 10:38
DX: S39.012A Strain of muscle, fascia and tendon of lower back, initial encounter (principal); R07.89 Other chest pain; R00.0 Tachycardia, unspecified; E11.65 Type 2 diabetes mellitus with hyperglycemia; I10 Essential (primary) hypertension; K21.9 Gastro-esophageal reflux disease without esophagitis; I25.2 Old myocardial infarction; Z87.891 Personal history of nicotine dependence; X58.XXXA Exposure to other specified factors, initial encounter; Y93.89 Activity, other specified; Y92.098 Other place in other non-institutional residence as the place of occurrence of the external cause; Y99.8 Other external cause status
CPT/HCPCS: 36415; 71045; 80048; 81003; 82040; 84484; 85025; 93005; 96372; 99285; J1885

== ENCOUNTER 2020-07-13 18:53 | Emergency (ER) | payer OTHER ==
[~2020-07-13] VITALS: Ht 165.1 cm; Wt 87.1 kg
[~2020-07-13 18:53] MED LIST changes: +HYDR-2214 PO; -HYDR-3240 PO; -PANT20TA3 PO; +PANT20TA4 PO
[2020-07-13] MEDS ORDERED: IBUPROFEN 200 MG TABLET ONE (19:06)
[2020-07-13] MEDS ORDERED: ACETAMINOPHEN 325 MG TABLET ONE (19:07)
--- NOTE | 2020-07-13 19:10 | NUR ---
PT MEDICATED WITH TYLENOL FOR PAIN PER NURSING PROTOCOL.
[2020-07-13] MEDS ORDERED: ACETAMINOPHEN 325 MG TABLET PO ONE (19:30)
--- NOTE | 2020-07-13 19:49 | NUR ---
[employer]: PT. TO ROOM FROM LOBBY AT THIS TIME.
[2020-07-13 19:52] VITALS: BP 147/98
[2020-07-13] MEDS ORDERED: KETOROLAC 30 MG/1 ML ONE (20:02)
[2020-07-13] MEDS ORDERED: KETOROLAC 30 MG/1 ML IM ONE (20:30)
== END 2020-07-13 20:36 | disposition home or self-care (01) ==
LOC: ED 20:32
DX: S63.521A Sprain of radiocarpal joint of right wrist, initial encounter (principal); S63.522A Sprain of radiocarpal joint of left wrist, initial encounter; S73.101A Unspecified sprain of right hip, initial encounter; S83.92XA Sprain of unspecified site of left knee, initial encounter; S70.311A Abrasion, right thigh, initial encounter; I10 Essential (primary) hypertension; E11.9 Type 2 diabetes mellitus without complications; V29.49XA Motorcycle driver injured in collision with other motor vehicles in traffic accident, initial encounter; Y93.89 Activity, other specified; Y92.410 Unspecified street and highway as the place of occurrence of the external cause; Y99.8 Other external cause status
CPT/HCPCS: 73110; 73502; 73564; 73590; 96372; 99284; J1885